=== PATIENT | male | born 1990 | race Caucasian/White ===

== ENCOUNTER 2017-01-19 11:59 | Emergency (ER) | payer OTHER ==
[~2017-01-19 11:59] MED LIST: APAP/HYDROCODON1 T13 PO; BACTRIM DS1 TAB PO; COL100 PO; FLO4 PO
[2017-01-19 12:13] VITALS: BP 155/85
== END 2017-01-19 14:13 | disposition home or self-care (01) ==
LOC: ED 11:59
DX: S20.212A Contusion of left front wall of thorax, initial encounter (principal); A74.9 Chlamydial infection, unspecified; X58.XXXA Exposure to other specified factors, initial encounter; Y93.89 Activity, other specified; Y99.8 Other external cause status; Y92.89 Other specified places as the place of occurrence of the external cause
CPT/HCPCS: 87491; 87591; J0696